=== PATIENT | male | born 1955 | race Two or more races ===

== ENCOUNTER 2022-10-03 05:50 | Day surgery (SDC) | payer OTHER ==
[~2022-10-03] VITALS: Ht 182.9 cm; Wt 81.6 kg
[~2022-10-03 05:50] MED LIST: CRESTOR20 MG PO; D3 + K2 DOTS 11 EACH PO
== END 2022-10-03 13:00 | disposition home or self-care (01) ==
LOC: CIR.AMB 05:50 → SURH 09:30 → EDSTATUS 09:30 → CIR.AMB 13:00 → SURH 15:15 → CIR.AMB 15:15
PROVIDERS: ATTEND Surgery
DX: C18.4 Malignant neoplasm of transverse colon (principal); Z20.822 Contact with and (suspected) exposure to COVID-19